=== PATIENT | male | born 1960 | race Caucasian/White ===

== ENCOUNTER 2019-03-07 19:27 | Emergency (ER) | payer OTHER ==
[~2019-03-07] VITALS: Ht 182.9 cm; Wt 93.4 kg
[~2019-03-07 19:27] MED LIST: EMPA25TA PO; FEXO1TAB31 PO; GABA-585 PO; GLIP10TA13 PO; LISI-334 PO; METF100010 PO; METF10007 PO; OXYM30SP NS; SITA100T PO
[2019-03-07 19:50] LABS: BASO # 0.1 x10^3/uL (0.0-0.2); BASO % 0 % (0-3); EOS % 0 % (0-3); HEMATOCRIT 46.7 % (39.0-53.0); HEMOGLOBIN 16.1 g/dL (13.0-17.5); LYMPH # 1.8 x10^3/uL (1.0-4.8); LYMPH % 13 % (24-48); MEAN CORPUSCULAR HEMOGLOBIN 31 pg (25-35); MEAN CORPUSCULAR HGB CONC 35 g/dL (31-37); MEAN CORPUSCULAR VOLUME 91 fL (79-100); MONO # 0.8 x10^3/uL (0.0-1.1); MONO % 6 % (0-9); NEUT # 10.8 x10^3/uL (1.8-7.7); NEUT % 80 % (31-73); PLATELET COUNT 259 x10^3/uL (140-400); RED BLOOD COUNT 5.14 x10^6/uL (4.30-5.70); RED CELL DISTRIBUTION WIDTH 12.9 % (11.5-14.5); WHITE BLOOD COUNT 13.5 x10^3/uL (4.0-11.0)
[2019-03-07 20:00] LABS: BILIRUBIN,URINE NEGATIVE (NEG); CLARITY,URINE CLEAR; COLOR,URINE YELLOW; NITRITE,URINE NEGATIVE (NEG); PH,URINE 5.5; PROTEIN,URINE NEGATIVE (NEG-TRACE); UROBILINOGEN,URINE 0.2 mg/dL (0.2 mg/dL)
[2019-03-07] MEDS ORDERED: IV NORMAL SALINE 1000ML BAG 1,000 ML IV ONE (20:00)
[2019-03-07 20:04] LABS: CALCIUM 9.2 mg/dL (8.5-10.1); CREATININE 0.9 mg/dL (0.7-1.3); GFR 86.4; POTASSIUM 4.4 mmol/L (3.5-5.1)
[2019-03-07 20:08] LABS: PROTHROMBIN TIME PATIENT 13.2 SEC (11.7-14.0)
[2019-03-07 20:10] LABS: BACTERIA,URINE 0 /HPF (0-FEW); RBC,URINE 0 /HPF (0-2); SQUAMOUS EPITHELIAL CELL,UR OCC /LPF
[2019-03-07 20:19] LABS: ALBUMIN 4.2 g/dL (3.4-5.0); ALBUMIN/GLOBULIN RATIO 1.2 (1.0-1.7); MAGNESIUM 1.9 mg/dL (1.8-2.4); TOTAL BILIRUBIN 0.7 mg/dL (0.2-1.0); TOTAL PROTEIN 7.7 g/dL (6.4-8.2)
[2019-03-07] MEDS ORDERED: MECLIZINE HCL 12.5 MG TABLET. PO ONE (20:30)
[2019-03-07] MEDS ORDERED: DEXAMETHASONE SOD PHOS 20 MG/5 ML VIAL. IV ONE (20:30)
--- NOTE | 2019-03-07 20:45 | RAD ---
PQRS Compliance Statement: One or more of the following individualized dose reduction techniques were utilized for this examination: 1. Automated exposure control 2. Adjustment of the mA and/or kV according to patient size 3. Use of iterative reconstruction technique CT head without contrast 03/07/2019 8:12 PM INDICATION: Weakness COMPARISON: CT head February 25, 2019 TECHNIQUE: Multiple axial CT images of the head were obtained from skull base through the vertex without intravenous contrast. FINDINGS: Head: Ventricles, sulci and basal cisterns are within normal limits. There is no hydrocephalus. Jimenez-white matter differentiation is normal. There is no acute intracranial hemorrhage. There is no mass, mass effect or midline shift. Posterior fossa is normal in appearance. Visualized portions of the orbits are normal. Mild mucosal thickening of the left maxillary sinus. Mastoid air cells are well aerated. Scalp and calvaria are normal. IMPRESSION: No acute intracranial hemorrhage. Electronically signed by: Sheela Newell MD (03/07/2019 8:42 PM) [facility]
--- NOTE | 2019-03-07 21:21 | PHYS DOC ---
Past Medical History Past Medical History: Diabetes-Type II, Hypertension, Other Additional Past Medical Histor: HEP C Alcohol Use: None Drug Use: None Adult General Chief Complaint Chief Complaint: WEAKNESS/GENERALIZED HPI HPI Patient is a 59 year old [f__sex] who presents with [] Review of Systems Review of Systems Constitutional: Denies fever or chills [] Eyes: Denies change in visual acuity, redness, or eye pain [] HENT: Denies nasal congestion or sore throat [] Respiratory: Denies cough or shortness of breath [] Cardiovascular: No additional information not addressed in HPI [] GI: Denies abdominal pain, nausea, vomiting, bloody stools or diarrhea [] : Denies dysuria or hematuria [] Musculoskeletal: Denies back pain or joint pain [] Integument: Denies rash or skin lesions [] Neurologic: Denies headache, focal weakness or sensory changes [] Endocrine: Denies polyuria or polydipsia [] All other systems were reviewed and found to be within normal limits, except as documented in this note. Current Medications Current Medications Current Medications Medications (Trade) Dose Ordered Sig/Lorie Start Time Stop Time Status Last Admin Dose Admin Dexamethasone Sodium Phosphate (Decadron) 10 mg 1X ONCE 03/07/19 20:30 03/07/19 20:31 DC 03/07/19 20:40 10 MG Diazepam (Valium) 5 mg 1X ONCE 03/07/19 22:15 03/07/19 22:16 DC 03/07/19 22:07 5 MG Meclizine HCl (Antivert) 25 mg 1X ONCE 03/07/19 20:30 03/07/19 20:31 DC 03/07/19 20:40 25 MG Sodium Chloride 1,000 ml @ 1,000 mls/hr 1X ONCE 03/07/19 20:00 03/07/19 20:59 DC 03/07/19 19:49 1,000 MLS/HR Allergies Allergies Allergies Coded Allergies Type Severity Reaction Last Updated Verified No Known Drug Allergies 02/25/19 No Physical Exam Physical Exam Constitutional: Well developed, well nourished, no acute distress, non-toxic appearance. [] HENT: Normocephalic, atraumatic, bilateral external ears normal, oropharynx moist, no oral exudates, nose normal. [] Eyes: PERRLA, EOMI, conjunctiva normal, no discharge. [] Neck: Normal range of motion, no tenderness, supple, no stridor. [] Cardiovascular:Heart rate regular rhythm, no murmur [] Lungs & Thorax: Bilateral breath sounds clear to auscultation [] Abdomen: Bowel sounds normal, soft, no tenderness, no masses, no pulsatile masses. [] Skin: Warm, dry, no erythema, no rash. [] Back: No tenderness, no CVA tenderness. [] Extremities: No tenderness, no cyanosis, no clubbing, ROM intact, no edema. [] Neurologic: Alert and oriented X 3, normal motor function, normal sensory function, no focal deficits noted. [] Psychologic: Affect normal, judgement normal, mood normal. [] Current Patient Data Vital Signs Vital Signs Date Time Temp Pulse Resp B/P (MAP) Pulse Ox O2 Delivery O2 Flow Rate FiO2 03/07/19 19:35 98.3 93 20 162/84 (110) 95 Room Air 98.3 Lab Values Laboratory Tests Test 03/07/19 19:37 03/07/19 19:41 03/07/19 19:44 White Blood Count 13.5 x10^3/uL (4.0-11.0) H Red Blood Count 5.14 x10^6/uL (4.30-5.70) Hemoglobin 16.1 g/dL (13.0-17.5) Hematocrit 46.7 % (39.0-53.0) Mean Corpuscular Volume 91 fL (79-100) Mean Corpuscular Hemoglobin 31 pg (25-35) Mean Corpuscular Hemoglobin Concent 35 g/dL (31-37) Red Cell Distribution Width 12.9 % (11.5-14.5) Platelet Count 259 x10^3/uL (140-400) Neutrophils (%) (Auto) 80 % (31-73) H Lymphocytes (%) (Auto) 13 % (24-48) L Monocytes (%) (Auto) 6 % (0-9) Eosinophils (%) (Auto) 0 % (0-3) Basophils (%) (Auto) 0 % (0-3) Neutrophils # (Auto) 10.8 x10^3/uL (1.8-7.7) H Lymphocytes # (Auto) 1.8 x10^3/uL (1.0-4.8) Monocytes # (Auto) 0.8 x10^3/uL (0.0-1.1) Eosinophils # (Auto) 0.0 x10^3/uL (0.0-0.7) Basophils # (Auto) 0.1 x10^3/uL (0.0-0.2) Prothrombin Time 13.2 SEC (11.7-14.0) Prothrombin Time INR 1.0 (0.8-1.1) Activated Partial Thromboplast Time 21 SEC (24-38) L Sodium Level 139 mmol/L (136-145) Potassium Level 4.4 mmol/L (3.5-5.1) Chloride Level 101 mmol/L (98-107) Carbon Dioxide Level 24 mmol/L (21-32) Anion Gap 14 (6-14) Blood Urea Nitrogen 19 mg/dL (8-26) Creatinine 0.9 mg/dL (0.7-1.3) Estimated GFR (Cockcroft-Gault) 86.4 BUN/Creatinine Ratio 21 (6-20) H Glucose Level 133 mg/dL (70-99) H Lactic Acid Level 1.9 mmol/L (0.4-2.0) Calcium Level 9.2 mg/dL (8.5-10.1) Magnesium Level 1.9 mg/dL (1.8-2.4) Total Bilirubin 0.7 mg/dL (0.2-1.0) Aspartate Amino Transferase (AST) 29 U/L (15-37) Alanine Aminotransferase (ALT) 73 U/L (16-63) H Alkaline Phosphatase 57 U/L (46-116) Ammonia 11 mcmol/L (11-34) Creatine Kinase 105 U/L (39-308) Creatine Kinase MB (Mass) 2.2 ng/mL (0.0-3.6) Creatine Kinase MB Relative Index 2.1 % (0-4) Troponin I Quantitative < 0.017 ng/mL (0.000-0.055) PA-Jik-H-Type Natriuretic Peptide 296 pg/mL (0-124) H Total Protein 7.7 g/dL (6.4-8.2) Albumin 4.2 g/dL (3.4-5.0) Albumin/Globulin Ratio 1.2 (1.0-1.7) Urine Color Yellow Urine Clarity Clear Urine pH 5.5 Urine Specific [place] >=1.030 Urine Protein Negative mg/dL (NEG-TRACE) Urine Glucose (UA) >=1000 mg/dL (NEG) Urine Ketones (Stick) 40 mg/dL (NEG) Urine Blood Negative (NEG) Urine Nitrite Negative (NEG) Urine Bilirubin Negative (NEG) Urine Urobilinogen Dipstick 0.2 mg/dL (0.2 mg/dL) Urine Leukocyte Esterase Negative (NEG) Urine RBC 0 /HPF (0-2) Urine WBC 1-4 /HPF (0-4) Urine Squamous Epithelial Cells Occ /LPF Urine Bacteria 0 /HPF (0-FEW) Glucose (Fingerstick) 135 mg/dL (70-99) H Laboratory Tests 03/07/19 19:37 Laboratory Tests 03/07/19 19:37 EKG EKG @1940 NSR at 95bpm, NO ST elevation, QRS 74ms, QT/QTc 330/418ms Radiology/Procedures Radiology/Procedures PROCEDURE: CT HEAD WO CONTRAST PQRS Compliance Statement: One or more of the following individualized dose reduction techniques were utilized for this examination: 1. Automated exposure control 2. Adjustment of the mA and/or kV according to patient size 3. Use of iterative reconstruction technique CT head without contrast 03/07/2019 8:12 PM INDICATION: Weakness COMPARISON: CT head February 25, 2019 TECHNIQUE: Multiple axial CT images of the head were obtained from skull base through the vertex without intravenous contrast. FINDINGS: Head: Ventricles, sulci and basal cisterns are within normal limits. There is no hydrocephalus. Jimenez-white matter differentiation is normal. There is no acute intracranial hemorrhage. There is no mass, mass effect or midline shift. Posterior fossa is normal in appearance. Visualized portions of the orbits are normal. Mild mucosal thickening of the left maxillary sinus. Mastoid air cells are well aerated. Scalp and calvaria are normal. IMPRESSION: No acute intracranial hemorrhage. Electronically signed by: Sheela Newell MD (03/07/2019 8:42 PM) [facility] Course & Med Decision Making Course & Med Decision Making Pertinent Labs and Imaging studies reviewed. (See chart for details) [] Dragon Disclaimer Dragon Disclaimer This electronic medical record was generated, in whole or in part, using a voice recognition dictation system. Departure Departure Impression: Primary Impression: Vertigo Disposition: 01 HOME, SELF-CARE Condition: IMPROVED Referrals: ELSA MARK APRN (PCP) ISDIRO NGUYEN MD, COLLEEN N MD Patient Instructions: Vertigo, [id number]-[id number] Scripts Ondansetron (ONDANSETRON ODT) 4 Mg Tab.rapdis 1 TAB PO PRN Q6-8HRS PRN for NAUSEA, #16 TAB Prov: ADELE PEACE DO 03/07/19 Meclizine Hcl (MECLIZINE HCL) 25 Mg Tablet 1 TAB PO PRN TID PRN for DIZZINESS, #20 TAB Prov: ADELE PEACE DO 03/07/19 Diazepam (VALIUM) 2 Mg Tablet 2 MG PO TID PRN for DIZZINESS, #10 TAB Prov: ADELE PEACE DO 03/07/19 ADELE PEACE DO Mar 07, 2019 21:21
[2019-03-07 21:30] VITALS: BP 150/81
--- NOTE | 2019-03-07 21:39 | RAD ---
Chest radiograph 03/07/2019 7:41 PM INDICATION: Weakness COMPARISON: February 25, 2019 TECHNIQUE: Portable upright frontal view of the chest is provided. FINDINGS: The cardiomediastinal silhouette is within normal limits. There are no pleural effusions. There is no pulmonary vascular congestion. There is no pneumothorax. The lungs are clear. No significant osseous abnormality is identified. IMPRESSION: No acute cardiopulmonary process. Electronically signed by: Sheela Newell MD (03/07/2019 9:36 PM) [facility]
[2019-03-07] MEDS ORDERED: diazePAM 5 MG TABLET PO ONE (22:15)
[2019-03-07] MEDS ORDERED: DIAZ2TAB PO (22:43)
[2019-03-07] MEDS ORDERED: ONDA4TAB12 PO (22:43)
[2019-03-07] MEDS ORDERED: MECL25TA3 PO (22:43)
--- NOTE | 2019-03-08 10:47 | EKG ---
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
== END 2019-03-07 23:10 | disposition home or self-care (01) ==
LOC: ER 19:27
DX: R42 Dizziness and giddiness (principal); E11.9 Type 2 diabetes mellitus without complications; I10 Essential (primary) hypertension
CPT/HCPCS: 36415; 70450; 71045; 80053; 81001; 82140; 82553; 82962; 83605; 83735; 83880; 84484; 85025; 85610; 85730; 93005; 96361; 96374; 99285; J1100; J7030; J8597

== ENCOUNTER → 2019-04-03 | Outpatient (CLI) | payer OTHER ==
[2019-03-07 21:30] VITALS: BP 150/81
[~2019-04-03] MED LIST changes: +DIAZ2TAB PO; +MECL25TA3 PO; +ONDA4TAB12 PO
[2019-04-03 16:12] LABS: BARBITURATES NEG (NEG); BENZODIAZEPINES NEG (NEG); CANNABINOIDS NEG (NEG); COCAINE NEG (NEG); METHADONE NEG (NEG); OPIATES NEG (NEG); PHENCYCLIDINE NEG (NEG)
[2019-04-03 16:14] LABS: AMPHETAMINE/METHAMPHETAMINE NEG (NEG)
== END | disposition home or self-care (01) ==
LOC: LAB 15:33
PROVIDERS: ATTEND Nurse Practitioner Family
DX: R26.81 Unsteadiness on feet (principal); I10 Essential (primary) hypertension; J45.909 Unspecified asthma, uncomplicated; E03.9 Hypothyroidism, unspecified; E11.42 Type 2 diabetes mellitus with diabetic polyneuropathy
CPT/HCPCS: 36415; 80307; 82550; 82607; 84443

== ENCOUNTER → 2019-04-10 | Outpatient (CLI) | payer OTHER ==
--- NOTE | 2019-04-10 11:17 | RAD ---
BRAIN W/O CONTRAST History: Gait instability. Left hand weakness. Technique: Multiplanar, multi sequential MR imaging was performed of the brain without contrast. 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 No significant mass effect. Patent fourth ventricle. Focal restricted diffusion within the left splenium of the corpus callosum extending along the left posterior hippocampal formation, concerning for acute to subacute infarct. Loss of flow void within the right distal vertebral artery. Mild foci of T2/FLAIR hyperintensity within the hemispheric white matter, likely within normal range for age. Imaged orbits are unremarkable. Imaged paranasal sinuses and mastoid air cells are clear. Impression: 1. Acute to subacute left splenium of the corpus callosum and posterior hippocampal formation infarct. Recommend follow-up to ensure normal evolution. 2. 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 3. Signal abnormality within the right distal vertebral artery, may indicate slow flow or occlusion. CT or MRI angiogram can further assess. FOR INTERNAL CODING PURPOSES Critical result: Findings discussed with DR. CHAVES at 04/10/2019 11:09 AM. RESULT CODE: (C) Electronically signed by: Jeffrey Watkins DO (04/10/2019 11:14 AM) [facility]
== END | disposition home or self-care (01) ==
LOC: MRI 09:55
PROVIDERS: ATTEND Psychiatry & Neurology Neurology
DX: I63.9 Cerebral infarction, unspecified (principal); R23.3 Spontaneous ecchymoses; G93.89 Other specified disorders of brain
CPT/HCPCS: 70551

== ENCOUNTER → 2019-04-23 | Outpatient (CLI) | payer OTHER ==
--- NOTE | 2019-04-25 13:53 | CARD ---
MR#: [id number] Date of Study: 04/23/2019 Ordering Physician: ISIDRO NGUYEN, Referring Physician: ISIDRO NGUYEN Tech: Radha Cyr RDCS APPROVED REPORT EXAM: Two-dimensional and M-mode echocardiogram with Doppler and color Doppler. Other Information Quality : Good INDICATION CVA/TIA Echo Enhancing Agent Indication: Rule Out Septal Defect Agent/Amount Used: Agitated Saline 24mL 2D DIMENSIONS RVDd2.8 (2.9-3.5cm)Left Atrium(2D)3.1 (1.6-4.0cm) IVSd1.1 (0.7-1.1cm)Aortic Root(2D)3.0 (2.0-3.7cm) LVDd4.7 (3.9-5.9cm)LVOT Diameter2.0 (1.8-2.4cm) PWd1.1 (0.7-1.1cm)LVDs2.7 (2.5-4.0cm) FS (%) 30.0 %SV73.6 ml LVEF(%)60.0 (>50%) Aortic Valve AoV Peak Aguilar.120.7cm/sAoV VTI15.8cm AO Peak GR.5.8mmHgLVOT Peak Aguilar.123.9cm/s AO Mean GR.3mmHgAVA (VMAX)3.21cm2 DEVYN (VTI)3.40cm2 Mitral Valve MV E Qtlykixy17.5cm/sMV DECEL LCCY080zs MV A Cakpvcgt79.0cm/sE/A Ratio0.8 Tricuspid Valve TR P. Gvfdnvom592ko/sRAP UAQCILPQ2nhJj TR Peak Gr.47nuUzDOHX99usAe Pulmonary Vein S1 Kqtkksbv95.2cm/sD2 Ochesvxc42.2cm/s LEFT VENTRICLE The left ventricle is normal size. There is normal left ventricular wall thickness. The left ventricu lar systolic function is normal and the ejection fraction is within normal range. The Ejection Fracti on is 55-60%. There is normal LV segmental wall motion. Transmitral Doppler flow pattern is Grade I-a bnormal relaxation pattern. RIGHT VENTRICLE The right ventricle is normal size. The right ventricular systolic function is normal. ATRIA The left atrium size is normal. The right atrium size is normal. The interatrial septum is intact wit h no evidence for an atrial septal defect or patent foramen ovale as noted on 2-D or Doppler imaging. The agitated saline study however demonstrate likely an atrial level shunt suggestive of a PFO versu s a small ASD AORTIC VALVE The aortic valve is normal in structure and function. Doppler and Color Flow revealed no significant aortic regurgitation. There is no significant aortic valvular stenosis. MITRAL VALVE The mitral valve is normal in structure and function. There is no evidence of mitral valve prolapse. There is no mitral valve stenosis. Doppler and Color Flow revealed no mitral valve regurgitation note d. TRICUSPID VALVE The tricuspid valve is normal in structure and function. Doppler and Color Flow revealed physiologica l tricuspid regurgitation. The PA pressure was estimated at 17 mmHg. There is no tricuspid valve sten osis. PULMONIC VALVE The pulmonic valve is not well visualized. Doppler and Color Flow revealed no pulmonic valvular regur gitation. There is no pulmonic valvular stenosis. GREAT VESSELS The aortic root is normal in size. The ascending aorta is not well seen. The IVC was not visualized. PERICARDIAL EFFUSION There is no evidence of significant pericardial effusion. Critical Notification Critical Value: No <Conclusion> The left ventricular systolic function is normal and the ejection fraction is within normal range. Th e Ejection Fraction is 55-60%. There is normal LV segmental wall motion. The interatrial septum is intact with no evidence for an atrial septal defect or patent foramen ovale as noted on 2-D or Doppler imaging. The agitated saline study however demonstrate likely an atrial l evel shunt suggestive of a PFO versus a small ASD Signed by : Sukhjinder Forrester, Electronically Approved : 04/23/2019 21:08:35
== END | disposition home or self-care (01) ==
LOC: ECHO 14:33
PROVIDERS: ATTEND Psychiatry & Neurology Neurology with Special Qualifications in Child Neurology
DX: I07.1 Rheumatic tricuspid insufficiency (principal); I63.9 Cerebral infarction, unspecified
CPT/HCPCS: 93306

== ENCOUNTER → 2019-04-23 | Outpatient (CLI) | payer OTHER ==
--- NOTE | 2019-04-23 16:30 | RAD ---
EXAM: Carotid Doppler sonogram. HISTORY: Cerebral infarction. TECHNIQUE: Jimenez scale and color Doppler sonographic evaluation of the neck with spectral waveform analysis was performed and static images are submitted for review. FINDINGS: The peak systolic velocity within the right common carotid artery is 1 heart and 48 cm/sec. The peak systolic velocity within the right internal carotid artery is 81 cm/sec and the end diastolic velocity within the right internal carotid artery is 39 cm/sec. The right ICA/CCA ratio is 0.55. The peak systolic velocity within the left common carotid artery is 123 cm/sec. The peak systolic velocity within the left internal carotid artery is 78 cm/sec and the end diastolic velocity within the left internal carotid artery is 38 cm/sec. The left ICA/CCA ratio is 0.64. There is normal antegrade flow within both vertebral arteries. IMPRESSION: No Doppler evidence of hemodynamically significant stenosis within the internal carotid arteries or vertebral arteries. PQRS Compliance Statement - Stenosis calculations for CT, MR and conventional angiography are based upon measurement of the distal ICA diameter in accordance with the NASCET methodology. Stenosis calculations for carotid ultrasound studies are derived from validated velocity criteria which are known to correlate with the NASCET methodology. Electronically signed by: Nichole Galvez MD (04/23/2019 4:28 PM) [place] [id number]
== END | disposition home or self-care (01) ==
LOC: US 15:36
PROVIDERS: ATTEND Psychiatry & Neurology Neurology with Special Qualifications in Child Neurology
DX: I63.9 Cerebral infarction, unspecified (principal)
CPT/HCPCS: 93880

== ENCOUNTER → 2019-05-06 | Outpatient (CLI) | payer OTHER ==
[~2019-05-06] MED LIST changes: +ASPI81TA50 PO; +ATOR20TA58 PO
--- NOTE | 2019-05-06 13:57 | PAIN ---
DATE OF SERVICE: 05/06/2019 INITIAL CONSULTATION FOR PAIN CLINIC CHIEF COMPLAINT: Neck and left upper extremity pain. HISTORY OF PRESENT ILLNESS: This is a 59-year-old male, who presents with history of pain in the neck and left upper extremity for about 3 months, not a result of any specific injury or action he is aware of, but it has been getting worse over time. The patient reports it gradually he was having some trouble lifting his arm and the pain became much worse in the neck and shoulder as well on the left side only. The patient reports now it is up in the middle part of the back to between the shoulder blades as well as the base of the neck with some aching pain that described as sharp and shooting in the left arm radiating in the left arm, intermittent in intensity, worse with activity, worse with weightbearing, reaching over his head with his left arm, reaching forward or driving a car with his left hand or using the steering wheel. The patient reports it generally does not awaken him from sleep at night, feels better with sitting or resting or putting, it is probably normal on the arm of a chair to support it, does affect his ability to walk at times, although he reports some pain shooting down the left side in the back as well from the shoulder blade, which is worse with walking. The patient did have an MRI scan of the cervical spine showing a mild spinal stenosis at C4-C5, borderline narrowing at C6-C7 with fairly advanced degenerative disk disease, lesser degree at C6-C7, mild narrowing of the right C4-C5 and C6-C7 neural foramina, multilevel facet disease. Small focus of increased T2 signal of the right cord at C6-C7 as well. The patient rates his disability rating from 0-10, 10 being the worst, as a 7 with family home responsibilities, 5 with recreation and social activity, 8 with occupation, 6 with self-care and life support activities. The patient has not tried any other modalities of therapies or traction or chiropractic for his neck and pain at this time. He is doing some stretching and strengthening exercises on his own, but had no formal therapies at this point. The patient has tried pqph-gsy-omhhpsz Tylenol as well as Motrin, which helped the pain, but only about a small extent. The patient reports no loss of motor function with significant radiating pain in the anterior deltoid, anterior bicep into the anterior forearm into the second and third fingers, especially on the left hand with dropping some items with the left hand, but without any overt motor loss and feels that his left hand is not as strong as it used to some extent as well. PAST MEDICAL HISTORY: Significant for diabetes, hypertension, gastroesophageal reflux, dizziness, headaches, arthritis. PAST SURGICAL HISTORY: No previous surgeries. CURRENT MEDICATIONS: Include Lizette, gabapentin, Jardiance, lisinopril, Januvia, Afrin spray, ondansetron, meclizine, Valium, and metformin. ALLERGIES: The patient has no known drug allergies. FAMILY HISTORY: Significant for diabetes and hypertension. 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 He is and lives with his spouse, does daily walking exercises. He reports he does not drink alcohol, does not use any tobacco products. Denies any illegal, illicit or recreational drugs and lives locally in [place], [place]. REVIEW OF SYSTEMS: The patient's review of systems is positive for those items mentioned in history of present illness. All systems reviewed and otherwise negative. It is complete, full and well documented on the patient's chart. PHYSICAL EXAMINATION: VITAL SIGNS: The patient's blood pressure is 144/91, pulse 76, respirations 18, temperature 98.2 degrees Fahrenheit, height is 5 feet 11 inches, weight is 218 pounds. GENERAL: The patient is awake, alert, oriented, appropriate, very pleasant demeanor. The patient is accompanied by his spouse. HEENT: Shows normocephalic, atraumatic. Extraocular movements are intact and symmetrical. Oral cavity: Mucous membranes moist and pink. Dentition is intact. NECK: Shows anterior throat supple without palpable lymphadenopathy noted. Swallow reflex symmetrical. CHEST: Shows normal on inspection. Breath sounds are clear to auscultation bilaterally. HEART: Shows S1, S2 clear. No murmurs auscultated. ABDOMEN: Obese, soft, nontender, nondistended. No palpable organomegaly is noted. No rebound or guarding demonstrated. BACK: The patient's back shows midline spine with no obvious deviation. Cervical paraspinous muscle shows symmetrical on inspection, on palpation shows some moderate tenderness bilaterally in the middle and lower distribution of paraspinous muscles, but only diffusely without radiation. This is true into the left superior medial trapezius as well without trigger points, without atrophy or hypertrophy. The patient has good rotational motion of cervical spine, both laterally greater than 45 degrees closer to 90 degrees, full extension, full forward flexion without increase in pain. EXTREMITIES: The patient's upper extremities show deep tendon reflexes 2+ in the biceps and triceps tendons. Motor exam is strong with approximately 4 on a scale of 5, left dev ops engineer strength 5/5 on the right. Bicep and tricep flexion likewise 4/5 on left, 5/5 on right, but intact without loss of strength on resistance. Peripheral pulses are 2+ radial distribution. No peripheral edema is noted bilaterally. Shoulder shows good rotational motion both actively and passively as well. Shoulder shrug is strong and intact without loss of strength on resistance, but with some moderate pain in the anterior deltoid and bicep on the left side with resistance, but no loss of strength. This is true with shoulder shrug and also abduction of shoulder to 90 degrees bilaterally with pain on the left side only, but intact and strong bilaterally. Peripheral pulses are 2+ radial. The patient's skin shows warm and dry, good turgor. No edema. No sores, rashes or bruising throughout. IMPRESSION: 1. This is a 59-year-old male with approximate 3-month history of increasing pain, base of the neck, left upper extremity in a radicular fashion following a C6-C7 dermatomal distribution. 2. MRI scan of cervical spine as noted. 3. Type 2 diabetes. 4. Hypertension. 5. Arthritis. PLAN: Options were discussed with the patient and the patient's spouse including conservative medical managements, physical therapies and interventional techniques and he would like to pursue interventional techniques. We discussed a cervical epidural steroid injection using description as well as anatomical models to describe the procedure. The patient will wait for preauthorization with insurance provider and return once this is approved for a cervical epidural steroid injection at that time C6-C7 level, translaminar approach. In the meantime, the patient will continue with stretching and strengthening exercises on his own and will try Medrol Dosepak as well. The patient was given instruction as well as side effects to be aware of with the medication and will follow up in approximately 2 weeks as scheduled. TOMMY ZURITA MD DR: ASHLEY/christine JOB#: [id number] / [id number]
== END | disposition home or self-care (01) ==
LOC: PNCL 09:50
PROVIDERS: ATTEND Anesthesiology
DX: M54.12 Radiculopathy, cervical region (principal); M79.602 Pain in left arm; E11.9 Type 2 diabetes mellitus without complications; I10 Essential (primary) hypertension; K21.9 Gastro-esophageal reflux disease without esophagitis; M19.90 Unspecified osteoarthritis, unspecified site; Z79.84 Long term (current) use of oral hypoglycemic drugs; Z79.899 Other long term (current) drug therapy
CPT/HCPCS: G0463

== ENCOUNTER → 2019-05-12 | Outpatient (CLI) | payer OTHER ==
[~2019-05-12] MED LIST changes: -ASPI81TA50 PO; -ATOR20TA58 PO
--- NOTE | 2019-05-12 11:55 | RAD ---
MRA Brain History: Stroke Technique: 3-D [id number] MR angiography was performed of the brain. Comparison: MRI brain exam April 10, 2019 Findings: Determination of any degree of stenosis is based on NASCET criteria. There is significant motion degradation. There is visualization of the intradural vertebral arteries bilaterally although very small in caliber on the right and more proximally probably either occluded are mostly excluded, not fully evaluated. There is some linear decreased flow-related enhancement of the proximal basilar artery. There is other undulation of the basilar artery caliber more distally with at least mild narrowing, poorly characterized due to motion. Region of PICAs was not fully included, faintly visualized on the left. AICAs are not well visualized on either side. There is visualization of segments of bilateral superior cerebellar arteries. There is shared origin of the left P1 segment and superior cerebellar artery. There is questionable tiny right posterior communicating artery although difficult to visualize in its entirety on this exam. Both internal carotid arteries are seen at the skull base. There is appearance of narrowing of the left ophthalmic internal carotid artery which may be significant with greater than 75% luminal diameter reduction although appearance could be accentuated by motion, lesser degree of narrowing of the right ophthalmic internal carotid artery at which there may be moderate narrowing about 50% luminal diameter reduction. There may be a tiny anterior communicating artery. There is visualization segments of the anterior, middle, posterior cerebral arteries bilaterally. It is difficult to exclude a nonocclusive, thin linear filling defect of the proximal left P2 segment on this motion degraded exam. Impression: 1. Exam is very limited due to motion degradation. There is appearance of nonocclusive linear filling defect in the proximal basilar artery without significant narrowing concerning for thromboembolism, very small right intradural vertebral artery which is likely either occluded or mostly occluded more proximally, not fully evaluated. 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 It is difficult to exclude a nonocclusive, thin linear filling defect of the proximal left P2 segment on this motion degraded exam. Critical results were discussed with nurse Jean in the office of Dr. Curran at 05/12/2019 11:52 AM. Electronically signed by: Dannie Lombardi MD (05/12/2019 11:53 AM) [id number]
== END | disposition home or self-care (01) ==
LOC: MRI 10:45
PROVIDERS: ATTEND Psychiatry & Neurology Neurology
DX: I65.23 Occlusion and stenosis of bilateral carotid arteries (principal); Z86.73 Personal history of transient ischemic attack (TIA), and cerebral infarction without residual deficits
CPT/HCPCS: 70544

== ENCOUNTER → 2019-05-16 | Outpatient (CLI) | payer OTHER ==
--- NOTE | 2019-05-16 15:48 | RAD ---
MR#: [id number] Date of Study: 05/16/2019 Ordering Physician: RALPH FORRESTER, Referring Physician: RALPH FORRESTER, Tech: Meghan Herrera RVT,[facility] APPROVED REPORT Bilateral Lower Extremity Venous Study for DVT Patient Location: OUT-PATIENT Indications Lower Extremity Pain: Medications Aspirin Vein Imaging (Right) CFV (R): Compressible SFJ (R): Compressible FEM (R): Compressible POP (R): Compressible DFV (R): Compressible PTV (R): Compressible GSV (R): Compressible Peroneals (R): Compressible Vein Imaging (Left) CFV (L): Compressible SFJ (L): Compressible FEM (L): Compressible POP (L): Compressible DFV (L): Compressible PTV (L): Compressible GSV (L): Compressible Peroneals (L): Compressible Findings The bilateral lower extremity deep veins were evaluated for thrombus with color Doppler, spectral and grayscale images. On the right the grayscale images of the common femoral, superficial femoral and popliteal veins do n ot demonstrate any evidence of thrombus and these veins appear to be compressible. The below-knee vei ns were not well visualized but grossly appear to be compressible. Spectral imaging and color Doppler do not reveal any evidence of obstruction to flow with normal respirophasic variation above the knee . Below the knee there is spontaneous flow noted. On the left, the grayscale images of the common femoral, superficial femoral and popliteal veins do n ot demonstrate any evidence of thrombus and these veins appear to be compressible. The below-knee vei ns again were not well visualized but grossly appear to be compressible. Spectral imaging and color D oppler do not reveal any evidence of obstruction to flow with normal respirophasic variation above th e knee. The below-knee veins demonstrate spontaneous flow. Critical Notification Critical Value: No <Conclusion> Negative for DVT in the bilateral lower extremities. Signed by : Ralph Forrester, Electronically Approved : 05/16/2019 15:47:57
== END | disposition home or self-care (01) ==
LOC: US 15:11
PROVIDERS: ATTEND Internal Medicine Cardiovascular Disease
DX: M79.604 Pain in right leg (principal); M79.605 Pain in left leg
CPT/HCPCS: 93970

== ENCOUNTER → 2019-05-23 | Outpatient (CLI) | payer OTHER ==
[~2019-05-23] MED LIST changes: +ASPI81TA50 PO; +ATOR20TA58 PO; +IOHEXOL 180 MG/ML 10 ML VIAL. ONE; +methylPREDNISolone ACETATE 40 MG/ML VIAL. ONE; +methylPREDNISolone ACETATE 80 MG/ML VIAL. ONE
--- NOTE | 2019-05-23 10:15 | PAIN ---
DATE OF SERVICE: 05/23/2019 PROGRESS NOTE FOR PAIN CLINIC DIAGNOSES: Cervical radiculopathy with cervical degenerative disk disease and cervical spinal stenosis. HISTORY OF PRESENT ILLNESS: The patient is a 59-year-old male who returns for followup status post initial evaluation and preauthorization for cervical epidural steroid injection. The patient reports still significant pain in the base of the neck and left upper extremity as it was previously, also in the mid upper back. The patient reports no new motor or sensory deficits. Medrol Dosepak was helpful for the first week or so and then the pain returned. The patient reports no new motor or sensory deficits, no new bowel or bladder incontinence. The patient reports the pain gets worse as the day goes on with activity, especially in the left upper extremity. The patient reports it is a 3 on a scale of 10 at all times, worst, least and average and is a 3 today. The patient reports it is aching and dull with radiating, shooting pain in the left arm as noted. The patient reports no new motor or sensory deficits, no new bowel or bladder incontinence or other complaints. PHYSICAL EXAMINATION: VITAL SIGNS: The patient's blood pressure 141/97, pulse 93, respirations 16, temperature 97.8 degrees Fahrenheit, weight is 218 pounds. GENERAL: The patient is awake, alert, oriented, appropriate, very pleasant demeanor. HEENT: Shows normocephalic, atraumatic. Extraocular movements are intact and symmetrical. Oral cavity: Mucous membranes moist and pink. Dentition is intact. NECK: Shows anterior throat supple without palpable lymphadenopathy noted. Swallow reflex symmetrical. CHEST: Shows normal on inspection. Breath sounds clear to auscultation bilaterally. HEART: Shows S1, S2 clear. No murmurs auscultated. ABDOMEN: Soft, nontender, nondistended. No palpable organomegaly is noted. No rebound or guarding demonstrated. BACK: Shows spine grossly in the midline. Normal appearing thoracic kyphosis and lumbar lordotic curvature. Cervical paraspinous muscle shows symmetrical on inspection, on palpation shows some moderate tenderness diffusely, but only diffusely without significant radiation. The patient shows good rotational motion of cervical spine, both laterally as well as extension and flexion without significant increase in pain. EXTREMITIES: Upper extremities show deep tendon reflexes 2+ in the biceps, triceps tendons. Motor exam is approximately 4 on a scale of 5 on left assembler show motor strength, bicep and tricep flexion and 5/5 on the right. Peripheral pulses are 2+. No peripheral edema is noted. Options were discussed with the patient. The patient's old chart was reviewed as his current medication regimen updated. Current review of systems updated today as well. We will proceed with a cervical epidural steroid injection today with fluoroscopic guidance. Risks were again discussed including, but not limited to bleeding, infection, possibility of epidural hematoma, subsequent neurological compromise, dural puncture, headaches, spinal cord and/or nerve damage, side effects of steroid medication and poor results regarding pain control. The patient understands and wished to proceed. The patient will return to clinic in approximately 2 weeks for followup. He was counseled on return appointment, activity level and side effects to be aware of. DIAGNOSES: Cervical radiculopathy with cervical degenerative disk disease and cervical spinal stenosis. PROCEDURE: Cervical epidural steroid injection, translaminar approach C6-C7 level using C-arm fluoroscopic guidance under sterile prep and drape using local anesthetic. MEDICATION INJECTED: The patient received a total of 120 mg of Depo-Medrol plus 5 mL of preservative-free normal saline and 2 mL of contrast. CONDITION AT DISCHARGE: Stable. The patient tolerated procedure well, had no complications. TOMMY ZURITA MD DR: ASHLEY/christine JOB#: [id number] / [id number]
== END ==
LOC: PNCL 08:48
PROVIDERS: ATTEND Anesthesiology
DX: M50.123 Cervical disc disorder at C6-C7 level with radiculopathy (principal); M48.02 Spinal stenosis, cervical region
CPT/HCPCS: 62321; J1030; J1040; Q9965

== ENCOUNTER → 2019-06-13 | Outpatient (CLI) | payer OTHER ==
[~2019-06-13] MED LIST changes: -IOHEXOL 180 MG/ML 10 ML VIAL. ONE; -methylPREDNISolone ACETATE 40 MG/ML VIAL. ONE; -methylPREDNISolone ACETATE 80 MG/ML VIAL. ONE
--- NOTE | 2019-06-13 09:41 | PAIN ---
DATE OF SERVICE: 06/13/2019 PROGRESS NOTE FOR PAIN CLINIC DIAGNOSES: Cervical radiculopathy with cervical degenerative disk disease and cervical spinal stenosis. HISTORY OF PRESENT ILLNESS: The patient is a 59-year-old male who returns for followup status post cervical epidural steroid injection x 1. The patient reports about 75% improvement for the first 2 weeks, now down to about 50% improvement overall, but still helping in much improvement in the left arm. The patient reports still some stiffness in the base of the neck and upper shoulders and back but the left arm is doing much better, he has increased his activity with greater ability to do household activities at home as well as traveling with greater ease and comfort, sleeping better at night. The patient reports the pain is about 4 on a scale of 10 at all times over the past week, worse with average and least is a 4. The patient reports it is tight feeling in the shoulder, left arm, still radiating in a radicular fashion into the left upper extremity following a C6-C7 dermatomal distribution, but much improved. The patient reports his blood sugar was elevated after his last injection, but is coming down now accordingly. The patient reports no new motor or sensory deficits, no new bowel or bladder incontinence or other complaints, sleeping better at night, does not awaken him from sleep. PHYSICAL EXAMINATION: VITAL SIGNS: The patient's blood pressure 160/91, pulse 80, respirations 16, temperature 97.8 degrees Fahrenheit, weight is 218 pounds. GENERAL: The patient is awake, alert, oriented, appropriate, very pleasant demeanor. HEENT: Shows normocephalic, atraumatic. Extraocular movements are intact and symmetrical. Oral cavity: Mucous membranes moist and pink. Dentition is intact. NECK: Shows anterior throat supple without palpable lymphadenopathy. Swallow reflex symmetrical. CHEST: Shows normal on inspection. Breath sounds are clear bilaterally. HEART: Shows S1, S2 clear. No murmurs auscultated. ABDOMEN: Soft, nontender, nondistended. BACK: Shows spine grossly in the midline. Cervical paraspinous muscle shows symmetrical on inspection, on palpation shows some moderate tenderness diffusely, but only diffusely bilaterally without significant radiation. The patient has good rotational motion of cervical spine, both laterally as well as extension and flexion without significant difficulty. EXTREMITIES: Upper extremities show deep tendon reflexes 2+ in the biceps and triceps tendons. Motor exam is strong with approximately 4 on a scale of 5 on the left with injection moulding machine operator strength 5/5 on the right. Bicep and tricep flexion is 5/5 and equal. Peripheral pulses are 2+ in the radial distribution. No peripheral edema is noted bilaterally. Shoulder shrug is strong and intact without loss of strength on resistance or pain reported. Options were discussed with the patient. The patient's old chart was reviewed as his current medication regimen updated. Current review of systems updated today as well. We will preauthorize the patient for a second cervical epidural steroid injection. He did very well after the first injection, still with persistent C6-C7 radiculopathy on the left upper extremity, improved significantly about 75% initially, but now returning. 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 The patient will follow up in approximately 2 weeks. We will plan on cervical epidural steroid injection, translaminar approach at C6-C7 level at that time. TOMMY ZURITA MD DR: ASHLEY/christine JOB#: [id number] / [id number]
== END | disposition home or self-care (01) ==
LOC: PNCL 08:27
PROVIDERS: ATTEND Anesthesiology
DX: M50.10 Cervical disc disorder with radiculopathy, unspecified cervical region (principal); M48.02 Spinal stenosis, cervical region
CPT/HCPCS: G0463

== ENCOUNTER → 2019-06-30 | Outpatient (CLI) | payer OTHER ==
[~2019-06-30] MED LIST changes: +IOHEXOL 180 MG/ML 10 ML VIAL. ONE; -OXYM30SP NS; +OXYM30SP25 NS; +ZOLP10TA PO; +methylPREDNISolone ACETATE 40 MG/ML VIAL. ONE; +methylPREDNISolone ACETATE 80 MG/ML VIAL. ONE
--- NOTE | 2019-07-01 03:33 | PAIN ---
DATE OF SERVICE: 06/30/2019 PROGRESS NOTE FOR PAIN CLINIC DIAGNOSES: Cervical radiculopathy with cervical degenerative disk disease and cervical spinal stenosis. HISTORY OF PRESENT ILLNESS: The patient is a 59-year-old male who returns for followup status post cervical epidural steroid injection x 1 with very good results, about 75% improvement. The patient reports still some significant pain in the neck and left shoulder and arm. The patient reports no new motor or sensory deficits, no new changes, still significant pain with repetitive motions, reaching over his arm with his left hand. The patient reports the pain is a 5 on a scale of 10, at its worst over the past week, 4 on average, 4 at its least and is a 4 today. The patient reports it is dull and aching in the left arm as well as the base of the neck. The patient reports no new motor or sensory deficits, no new changes. PHYSICAL EXAMINATION: VITAL SIGNS: The patient's blood pressure 137/99, pulse 94, respirations 16, temperature 98.1 degrees Fahrenheit, weight is 220 pounds. GENERAL: The patient is awake, alert, oriented, appropriate, very pleasant demeanor. The patient is accompanied by his spouse. HEENT: Shows normocephalic, atraumatic. Extraocular movements are intact and symmetrical. Oral cavity shows mucous membranes moist and pink. Dentition is intact. NECK: Shows anterior throat supple without palpable lymphadenopathy noted. Swallow reflex symmetrical. CHEST: Shows normal on inspection. Breath sounds are clear to auscultation bilaterally. HEART: Shows S1, S2 clear. No murmurs auscultated. ABDOMEN: Soft, nontender, nondistended. No palpable organomegaly is noted. No rebound or guarding demonstrated. BACK: Shows spine grossly in the midline. Normal appearing thoracic kyphosis, cervical lordotic curvature and lumbar lordotic curvature. Cervical paraspinous muscle shows symmetrical on inspection; on palpation, shows some moderate tenderness diffusely bilaterally, but only diffusely without significant radiation. EXTREMITIES: The patient's upper extremities show deep tendon reflexes at 2+ in the biceps and triceps tendons. Motor exam shows a 4 on a scale of 5 on the left and 5/5 on the right. Peripheral pulses are 1+ posterior tibia. No peripheral edema is noted bilaterally. Options were discussed with the patient. The patient's old chart was reviewed as his current medication regimen updated. Current review of systems updated today as well. We will proceed with a second in a series of cervical epidural steroid injection today with fluoroscopic guidance. Risks were again discussed including, but not limited to bleeding, infection, possibility of epidural hematoma, subsequent neurological compromise, dural puncture, headaches, spinal cord and/or nerve damage, side effects of steroid medication and poor results regarding pain control. The patient understands and wished to proceed. The patient will return to clinic in approximately 2 weeks for followup. She was counseled on return appointment, activity level and side effects to be aware of. IMPRESSION: Cervical radiculopathy with cervical degenerative disk disease and cervical spinal stenosis. PROCEDURE: Cervical epidural steroid injection, translaminar approach C6-C7 level using C-arm fluoroscopic guidance under sterile prep and drape using local anesthetic. MEDICATION INJECTED: A total of 120 mg Depo-Medrol plus 5 mL of preservative-free normal saline and 2 mL of contrast. CONDITION AT DISCHARGE: Stable. The patient tolerated the procedure well, had no complications. TOMMY ZURITA MD DR: ASHLEY/christine JOB#: [id number] / [id number]
== END ==
LOC: PNCL 14:22
PROVIDERS: ATTEND Anesthesiology
DX: M50.123 Cervical disc disorder at C6-C7 level with radiculopathy (principal)
CPT/HCPCS: 62321; J1030; J1040; Q9965

== ENCOUNTER → 2019-07-14 | Outpatient (CLI) | payer OTHER ==
[~2019-07-14] MED LIST changes: -IOHEXOL 180 MG/ML 10 ML VIAL. ONE; +MECL-75 PO; -MECL25TA3 PO; -methylPREDNISolone ACETATE 40 MG/ML VIAL. ONE; -methylPREDNISolone ACETATE 80 MG/ML VIAL. ONE
--- NOTE | 2019-07-15 04:32 | PAIN ---
DATE OF SERVICE: 07/14/2019 PROGRESS NOTE FOR PAIN CLINIC DIAGNOSES: Cervical radiculopathy with cervical degenerative disk disease and cervical spinal stenosis. HISTORY OF PRESENT ILLNESS: The patient is a 59-year-old male who returns for followup status post cervical epidural steroid injection x 2. The patient reports 80% improvement after last injection, which is still lasting but still has some pain in the left upper extremity, at the base of the neck and left shoulder. The patient reports it is much less than it was, rates his pain as a 2 on a scale of 10 at all times, worst to least an average and a 2/10 today. The patient reports it is dull, aching pain radiating and shooting in the left upper extremity, still in a radicular fashion and reports it still follows a C6-C7 dermatomal distribution into the left arm with some weakness in the hand with repetitive motions, but otherwise the strength is fairly good. The patient reports no new motor or sensory deficits, no new changes. PHYSICAL EXAMINATION: VITAL SIGNS: The patient's blood pressure 157/93, pulse 99, respirations 16, temperature 98.3 degrees Fahrenheit, weight is 223 pounds. GENERAL: The patient is awake, alert, oriented, appropriate, very pleasant demeanor. HEENT: Shows normocephalic, atraumatic. Extraocular movements are intact and symmetrical. The patient is wearing eye glasses. Oral cavity: Mucous membranes are moist and pink. NECK: Shows anterior throat supple. CHEST: Shows normal on inspection. Breath sounds are clear bilaterally. HEART: Shows S1, S2 clear. ABDOMEN: Soft, nontender, nondistended. BACK: Shows spine grossly in the midline. Cervical paraspinous muscle shows symmetrical on inspection, with a normal-appearing cervical lordotic curvature. Cervical paraspinous muscles on palpation shows some moderate tenderness, inferior aspect of the cervical paraspinous musculature and the superior medial trapezius on the left only, but without trigger points, without asymmetry, without radiation. The patient has good rotational motion of the cervical spine, both laterally as well as extension and flexion without difficulty. EXTREMITIES: Upper extremities show deep tendon reflexes 2+ in the biceps and triceps tendons. Motor exam is approximately 4 on a scale 5 on the left and 5/5 on the right with physical therapist center manager strength, bicep and tricep flexion 4/5 left, 5/5 right as well. Peripheral pulses are 2+ radial distribution. No peripheral edema is noted bilaterally. Shoulder shrug is strong and intact as is abduction of the shoulder to 90 degrees without loss of strength on resistance with either maneuver. PLAN: Options were discussed with the patient. The patient's old chart was reviewed as his current medication regimen updated. Current review of systems updated today as well. We will preauthorize the patient for a third in the series of cervical epidural steroid injection for a C6-C7 left-sided dermatomal radiculopathy for translaminar injection at the C6-C7 level. The patient will wait for preauthorization with his insurance provider and once maintained, will return for cervical epidural steroid injection at that time. The patient was encouraged to increase activity as tolerated, but still maintain stretching and strengthening exercises with the left shoulder and arm. The patient is also having a CT scan of the head tomorrow per his neurologist concerning recent headaches as well. TOMMY ZURITA MD DR: ASHLEY/christine JOB#: [id number] / [id number]
== END | disposition home or self-care (01) ==
LOC: PNCL 14:21
PROVIDERS: ATTEND Anesthesiology
DX: M50.10 Cervical disc disorder with radiculopathy, unspecified cervical region (principal); M48.02 Spinal stenosis, cervical region
CPT/HCPCS: G0463

== ENCOUNTER → 2019-07-28 | Outpatient (CLI) | payer OTHER ==
[~2019-07-28] MED LIST changes: +IOHEXOL 180 MG/ML 10 ML VIAL. ONE; -MECL-75 PO; +MECL25TA3 PO; +methylPREDNISolone ACETATE 40 MG/ML VIAL. ONE; +methylPREDNISolone ACETATE 80 MG/ML VIAL. ONE
--- NOTE | 2019-07-28 12:25 | PAIN ---
DATE OF SERVICE: 07/28/2019 PROGRESS NOTE FOR PAIN CLINIC DIAGNOSES: Cervical radiculopathy with cervical degenerative disk disease and cervical spinal stenosis. HISTORY OF PRESENT ILLNESS: The patient is a 59-year-old male who returns for followup status post cervical epidural steroid injections x 2, about 80% improvement in pain, now returning; however, in the neck and the upper extremities, more on the right than the left, but present bilaterally. The patient reports no new motor or sensory deficits, no new changes. He is waiting for preauthorization from his insurance provider for his injection today and he has obtained that and would like to proceed. The patient reports the pain is a 3 on a scale of 10 at its worst over the past week as well as least and average and 3 at all times and is a 3 today. The patient reports it is dull, aching at the base of neck and shoulders, upper extremities, again more on the right side currently. The patient reports no new motor or sensory deficits, no new changes. PHYSICAL EXAMINATION: VITAL SIGNS: The patient's blood pressure 149/93, pulse 99, respirations 18, temperature 98.8 degrees Fahrenheit, height is 5 feet 11 inches, weight is 220 pounds. GENERAL: The patient is awake, alert, oriented, appropriate, very pleasant demeanor. HEENT: Shows normocephalic, atraumatic. Extraocular movements are intact and symmetrical. Oral cavity shows mucous membranes moist and pink. Dentition is intact. NECK: Shows anterior throat supple without palpable lymphadenopathy noted. Swallow reflex symmetrical. CHEST: Shows normal on inspection. Breath sounds are clear bilaterally. HEART: Shows S1, S2 clear. No murmurs auscultated. ABDOMEN: Soft, nontender, nondistended. No palpable organomegaly is noted. No rebound or guarding demonstrated. BACK: Shows spine grossly in the midline, normal-appearing cervical lordotic curvature, thoracic kyphotic curvature, slightly increased and some minor flattening of lumbar lordotic curvature. Cervical paraspinous muscle shows symmetrical on inspection, with palpation shows some moderate tenderness diffusely, but only diffusely without significant radiation. The patient has good rotational motion of cervical spine, both laterally as well as extension and flexion without difficulty. EXTREMITIES: The patient's upper extremities show deep tendon reflexes 2+ in the biceps and triceps tendons. Motor exam is strong with approximately 4 on a scale of 5 in the left health education assistant strength and 5/5 on the right. Peripheral pulses are 2+ radial. No peripheral edema is noted bilaterally. Options were discussed with the patient. The patient's old chart was reviewed as his current medication regimen updated. Current review of systems updated today as well. We will proceed with a third in the series of cervical epidural steroid injection today with fluoroscopic guidance. Risks were again discussed including, but not limited to bleeding, infection, possibility of epidural hematoma, subsequent neurological compromise, dural puncture, headaches, spinal cord and/or nerve damage, side effects of steroid medication and poor results regarding pain control. The patient understands and wished to proceed. The patient will return to the clinic in approximately 2 weeks for followup. He was counseled on return appointment, activity level and side effects to be aware of. DIAGNOSES: Cervical radiculopathy with cervical degenerative disk disease and cervical spinal stenosis. PROCEDURE: Cervical epidural steroid injection, translaminar approach C6-C7 level using C-arm fluoroscopic guidance under sterile prep and drape using local anesthetic. MEDICATION INJECTED: A total of 120 mg Depo-Medrol plus 5 mL of preservative-free normal saline and 2 mL of contrast. CONDITION AT DISCHARGE: Stable. The patient tolerated the procedure well, had no complications. TOMMY ZURITA MD DR: ASHLEY/christine JOB#: [id number] / [id number]
== END ==
LOC: PNCL 10:15
PROVIDERS: ATTEND Anesthesiology
DX: M50.123 Cervical disc disorder at C6-C7 level with radiculopathy (principal); M48.02 Spinal stenosis, cervical region
CPT/HCPCS: 62321; J1030; J1040; Q9965